=== PATIENT | female | born 2000 | race Caucasian/White ===

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

== ENCOUNTER 2022-06-11 16:52 | Emergency (ER) | payer OTHER ==
[~2022-06-11] VITALS: Ht 167.6 cm; Wt 77.1 kg
[2022-06-11 17:01] VITALS: BP 147/100
== END 2022-06-11 18:16 | disposition home or self-care (01) ==
LOC: ER 16:52
DX: S16.1XXA Strain of muscle, fascia and tendon at neck level, initial encounter (principal); M25.562 Pain in left knee; V89.2XXA Person injured in unspecified motor-vehicle accident, traffic, initial encounter
CPT/HCPCS: 99283

== ENCOUNTER 2024-02-14 09:34 | Emergency (ER) | payer OTHER ==
[~2024-02-14] VITALS: Ht 165.1 cm; Wt 81.7 kg
[2024-02-14] MEDS ORDERED: ENILLORING VAG1 EACH VG (11:00)
[2024-02-14] MEDS ORDERED: Ketorolac Tromethamine 15mg Vial IV ONE (11:10)
[2024-02-14] MEDS ORDERED: Ondansetron HCl 2 MG / ML 2ML Vial IV ONE (11:10)
[2024-02-14 11:18] LABS: BASOPHILS ABSOLUTE AUTO 0.02 K/mm3 (0.00-0.23); BASOPHILS PERCENT AUTO 0 % (0-2); EOSINOPHILS ABSOLUTE AUTO 0.04 K/mm3 (0.00-0.68); EOSINOPHILS PERCENT AUTO 0 % (0-6); Hematocrit 41.7 % (33.0-51.0); Hemoglobin 14.1 g/dL (11.5-16.0); IMMATURE GRAN ABSOLUTE AUTO 0.02 K/mm3 (0.00-0.10); IMMATURE GRAN PERCENT AUTO 0 % (0-1); LYMPHOCYTES ABSOLUTE AUTO 1.89 K/mm3 (0.84-5.20); LYMPHOCYTES PERCENT AUTO 21 % (21-46); MONOCYTES ABSOLUTE AUTO 0.62 K/mm3 (0.16-1.47); MONOCYTES PERCENT AUTO 7 % (4-13); Mean Corpuscular HGB 28.7 pg (26.0-34.0); Mean Corpuscular HGB Conc 33.8 g/dL (31.5-36.5); Mean Corpuscular Volume 85 fL (80-100); NEUTROPHILS ABSOLUTE AUTO 6.33 K/mm3 (1.96-9.15); NEUTROPHILS PERCENT AUTO 71 % (41-73); Platelet Count 281 K/mm3 (150-400); RDW Coefficient Variation 13.2 % (11.7-14.2); RDW Standard Deviation 41.3 fL (35.1-46.3); Red Blood Cell Count 4.92 M/mm3 (3.80-5.20); White Blood Cell Count 8.92 K/mm3 (4.00-11.30)
[2024-02-14 11:53] LABS: Albumin, Blood 3.7 g/dL (3.4-5.0); Albumin/Globulin Ratio 0.9 (0.8-1.8); Bilirubin, Total 0.4 mg/dL (0.1-1.0); Bun/Creatinine Ratio 14.9 (12.0-20.0); Calcium, Blood 9.4 mg/dL (8.5-10.1); Creatinine, Blood 0.74 mg/dL (0.40-1.00); Globulin, Blood 4.3 g/dL (2.2-4.0); Percent Saturation 11.2 % (15.0-50.0); Potassium, Blood 3.8 mmol/L (3.5-5.5)
[2024-02-14] MEDS ORDERED: ONDA4ODT MM (12:08)
[2024-02-14 12:48] VITALS: BP 129/89
== END 2024-02-14 13:05 | disposition home or self-care (01) ==
LOC: ER 09:34
PROVIDERS: Emergency Medicine
DX: N93.8 Other specified abnormal uterine and vaginal bleeding (principal)
CPT/HCPCS: 80053; 82728; 83540; 83550; 84703; 85025; 96374; 96375; 99284-25; J1885; J2405

== ENCOUNTER 2024-11-27 18:49 | Emergency (ER) | payer OTHER ==
[~2024-11-27] VITALS: Ht 165.1 cm; Wt 86.2 kg
[~2024-11-27 18:49] MED LIST changes: +ENILLORING VAG1 EACH VG; +ONDA4ODT MM
[2024-11-27 18:52] VITALS: BP 153/89
[2024-11-27] MEDS ORDERED: Ketorolac Tromethamine 30mg Vial IM ONE (19:25)
== END 2024-11-27 20:46 | disposition home or self-care (01) ==
LOC: ER 18:49
DX: S80.01XA Contusion of right knee, initial encounter (principal); W01.198A Fall on same level from slipping, tripping and stumbling with subsequent striking against other object, initial encounter
CPT/HCPCS: 73562-RT; 96372; 99283-25; A9270; J1885